=== PATIENT | male | born 1980 | race Two or more races ===

== ENCOUNTER 2023-10-21 09:14 | Emergency (ER) | payer OTHER ==
[2023-10-21 09:25] VITALS: BP 110/67; PULSE 61; RESP 18; TEMP 98; BMI 24.7
[2023-10-21] MEDS ORDERED: ACETAMINOPHEN 500 MG TABLET (FP) ONE (10:15)
[2023-10-21] MEDS: ACETAMINOPHEN 500 MG TABLET (FP) PO ONE (10:17)
== END 2023-10-21 11:24 | disposition home or self-care (01) ==
LOC: JERFT 09:14
DX: S99.921A Unspecified injury of right foot, initial encounter (principal); M79.671 Pain in right foot; W20.8XXA Other cause of strike by thrown, projected or falling object, initial encounter; Y99.0 Civilian activity done for income or pay
CPT/HCPCS: 73630-TC-RT-FY; 99283-25